=== PATIENT | female | born 1960 | race African-American/Black ===

== ENCOUNTER 2019-02-18 05:05 | Emergency (ER) | payer OTHER ==
[~2019-02-18] VITALS: Ht 162.6 cm; Wt 70.0 kg
[2019-02-18] MEDS ORDERED: IPRATROPIUM BROMIDE (0.02%) 0.5MG/2.5ML NEB HHN STA (05:37)
[2019-02-18] MEDS ORDERED: ALBUTEROL (0.083%) 2.5MG/3ML NEB HHN STA (05:37)
[2019-02-18 05:58] LABS: BASOPHILS % 0.9 % (0.0-2.0); EOSINOPHILS % 14.4 % (0.0-5.0); HEMATOCRIT. 43.1 % (36.0-48.0); HEMOGLOBIN. 14.2 g/dL (12.0-16.0); LYMPHOCYTES % 22.7 % (20.0-50.0); MEAN CORPUSCULAR HEMOGLOBIN 27.5 pg (28.0-32.0); MEAN CORPUSCULAR VOLUME 83.4 fL (81.0-99.0); MEAN PLATELET VOLUME 8.7 fl (7.4-10.4); MONOCYTES % 5.3 % (2.0-8.0); NEUTROPHILS % 56.7 % (40.0-76.0); PLATELET 296 x1000/uL (130-400); RED BLOOD CELL COUNT 5.17 mill/uL (4.2-5.4)
[2019-02-18 06:02] LABS: CHLORIDE 105 mEq/L (98-107)
[2019-02-18] MEDS ORDERED: CEFTRIAXONE 1 G PREMIX 50 ML IV ONE (07:00)
[2019-02-18] MEDS ORDERED: AZITHROMYCIN 500 MG in DEXT 5% WATER 250 ML IV SCH (07:00)
[2019-02-18] MEDS ORDERED: NITROGLYCERIN 0.4MG TABLET SL SL PRN (08:00)
[2019-02-18] MEDS ORDERED: HYDRALAZINE HCL 50MG TABLET PO ONE (10:15)
[2019-02-18 10:45] VITALS: BP 143/60
== END 2019-02-18 11:00 ==
LOC: ER 05:05 → CANBEDREQ 20:04
DX: J18.9 Pneumonia, unspecified organism (principal); J44.9 Chronic obstructive pulmonary disease, unspecified; F41.9 Anxiety disorder, unspecified; E78.00 Pure hypercholesterolemia, unspecified; I10 Essential (primary) hypertension; I25.10 Atherosclerotic heart disease of native coronary artery without angina pectoris; Z98.890 Other specified postprocedural states; F17.210 Nicotine dependence, cigarettes, uncomplicated
CPT/HCPCS: 36415; 71045; 80053; 82962; 83605; 83880; 84484; 85025; 87040; 93005; 94640; 96365; 96367; 99284; 99406; J0456; J0696; J7060; J7611; Z7610

== ENCOUNTER 2019-03-02 17:11 | Inpatient (IN) | payer OTHER ==
[~2019-03-02] VITALS: Ht 162.6 cm; Wt 69.9 kg
[2019-03-02] MEDS ORDERED: IPRATROPIUM BROMIDE (0.02%) 0.5MG/2.5ML NEB HHN STA (17:25)
[2019-03-02] MEDS ORDERED: METHYLPREDNISOLONE SOD SUCC 125 MG/2 ML VIAL IV STA (17:25)
[2019-03-02] MEDS ORDERED: ALBUTEROL (0.083%) 2.5MG/3ML NEB HHN STA (17:25)
[2019-03-02] MEDS ORDERED: MAGNESIUM 2 G PREMIX 50 ML IV STA (17:25)
[2019-03-02] MEDS ORDERED: LABETALOL 5MG/ML SYR 20 MG/4 ML SYRINGE IV ONE (17:30)
[2019-03-02 18:02] LABS: HEMATOCRIT. 38.9 % (36.0-48.0); HEMOGLOBIN. 12.6 g/dL (12.0-16.0); MEAN CORPUSCULAR VOLUME 83.1 fL (81.0-99.0); MEAN PLATELET VOLUME 8.1 fl (7.4-10.4); PLATELET 324 x1000/uL (130-400); RED BLOOD CELL COUNT 4.69 mill/uL (4.2-5.4); RED CELL DISTRIBUTION WIDTH 14.2 % (11.6-14.6)
[2019-03-02 18:07] LABS: CHLORIDE 108 mEq/L (98-107)
[2019-03-02 18:11] LABS: ETHANOL BLOOD < 10 mg/dL
[2019-03-02 18:21] LABS: INR 1.1; PROTHROMBIN TIME 11.4 sec (9.6-11.0)
[2019-03-02] MEDS ORDERED: ONDANSETRON HCL 4MG/2ML INJ IV STA (19:34)
[2019-03-02] MEDS ORDERED: MORPHINE SULFATE 4 MG/ML CPJ (NOT FOR IM USE) IV STA (19:34)
[2019-03-02] MEDS ORDERED: NITROGLYCERIN OINT 1GM/INCH UDPKT TD ONE (19:45)
[2019-03-02] MEDS ORDERED: ASPIRIN 81MG TABLET PO ONE (19:45)
[2019-03-02 20:49] LABS: PLATELET ESTIMATE NORMAL
[2019-03-02] MEDS ORDERED: FUROSEMIDE 20MG/2ML VIAL IVP ONE (21:00)
[2019-03-02 21:50] LABS: CLARITY URINE CLEAR (CLEAR); COLOR URINE YELLOW (YELLOW); KETONES URINE NEGATIVE (NEGATIVE); LEUKOCYTE ESTERASE URINE NEGATIVE (NEGATIVE); NITRITE URINE NEGATIVE (NEGATIVE); OCCULT BLOOD URINE NEGATIVE (NEGATIVE); PROTEIN URINE 1+ (NEGATIVE); SPECIFIC GRAVITY URINE 1.012 (1.005-1.030)
[2019-03-02 22:06] LABS: *AMPHETAMINES SCREEN URINE NEGATIVE (NEGATIVE); *BARBITURATES SCREEN URINE NEGATIVE (NEGATIVE)
[2019-03-02 22:07] LABS: *BENZODIAZEPINES SCREEN URINE NEGATIVE (NEGATIVE); *COCAINE SCREEN URINE NEGATIVE (NEGATIVE); METHADONE URINE SCREEN NEGATIVE (NEGATIVE); OPIATES URINE SCREEN PRESUMTIVE POSITIVE (NEGATIVE); PHENCYCLIDINE URINE SCREEN NEGATIVE (NEGATIVE)
[2019-03-02 22:08] LABS: CANNABINOID URINE SCREEN NEGATIVE (NEGATIVE)
[2019-03-02] MEDS ORDERED: FUROSEMIDE 20MG/2ML VIAL IV NR (23:15)
[2019-03-02] MEDS ORDERED: CLONIDINE 0.1MG TABLET PO PRN (23:15)
[2019-03-03] MEDS: ALBUTEROL (0.083%) 2.5MG/3ML NEB HHN SCH ×6 (00:09→20:39)
[2019-03-03] MEDS: IPRATROPIUM BROMIDE (0.02%) 0.5MG/2.5ML NEB HHN SCH ×6 (00:09→20:39)
[2019-03-03 04:30] VITALS: BP 166/73
[2019-03-03 05:45] VITALS: BP 166/73
[2019-03-03] MEDS ORDERED: INFLUENZA VIRUS VACCINE(AFLURIA) 0.5ML SYR IM ONE (06:00)
[2019-03-03] MEDS ORDERED: PNEUMOCOCCAL 23-VAL P-SAC VAC 0.5 ML IM ONE (06:00)
[2019-03-03] MEDS ORDERED: NITROGLYCERIN 0.4MG TABLET SL SL PRN (06:15)
[2019-03-03] MEDS ORDERED: DEXTROSE 50% WATER 50ML SYRINGE IV PRN (06:15)
[2019-03-03] MEDS ORDERED: ACETAMINOPHEN 325MG TABLET PO PRN (06:15)
[2019-03-03] MEDS ORDERED: TEMAZEPAM 15MG CAPSULE PO PRN (06:15)
[2019-03-03] MEDS ORDERED: ASPI-1393 PO (06:57)
[2019-03-03] MEDS ORDERED: CLOP75TA33 PO (06:57)
[2019-03-03] MEDS ORDERED: LORA1TAB MT (06:57)
[2019-03-03] MEDS ORDERED: GLIP5TAB12 MT (06:57)
[2019-03-03] MEDS ORDERED: METF-816 MT (06:57)
[2019-03-03] MEDS ORDERED: ATOR20TA65 MT (06:57)
[2019-03-03] MEDS: BLOOD SUGAR DIAGNOSTIC STRIP TEST SCH ×4 (07:10→21:30)
[2019-03-03 08:00] VITALS: BP 155/69
[2019-03-03] MEDS ORDERED: POTASSIUM CHLORIDE 20MEQ TABLET SR PO NR (08:00)
[2019-03-03] MEDS ORDERED: LOSARTAN POTASSIUM 50 MG TABLET PO NR (08:00)
[2019-03-03] MEDS: CLOPIDOGREL 75MG TABLET PO SCH (09:48)
[2019-03-03] MEDS: CARVEDILOL 3.125 MG TABLET PO SCH ×2 (09:48→21:30)
[2019-03-03] MEDS: FUROSEMIDE 40MG/4ML VIAL IVP SCH (09:48)
[2019-03-03] MEDS: PANTOPRAZOLE 40MG DR TABLET PO SCH (09:49)
[2019-03-03] MEDS: ASPIRIN 81MG TABLET PO SCH (09:49)
[2019-03-03] MEDS: ENOXAPARIN 40MG/0.4ML SYR SUBCUT SCH (09:49)
[2019-03-03] MEDS: INSULIN LISPRO 100 UNITS/ML SUBCUT SCH ×4 (09:51→21:50)
[2019-03-03 12:00] VITALS: BP 161/66
[2019-03-03] MEDS: CEFTRIAXONE 1 G PREMIX 50 ML IV SCH (13:34)
[2019-03-03] MEDS ORDERED: SODIUM BICARBONATE 4% (2.4MEQ) 5ML VIAL IV ONE (13:38)
[2019-03-03 16:00] VITALS: BP 130/63
[2019-03-03] MEDS: METHYLPREDNISOLONE SOD SUCC 40 MG/ML VIAL IV SCH (16:45)
[2019-03-03 17:00] LABS: BG CARBOXYHEMOGLOBIN 0.2 % (0.5-1.5); BG DEOXYHEMOGLOBIN 17.2 % (0.0-5.0); BG FRACTION INSPIRED OXYGEN 21; BG HCO3 ACT 26.1 mmol/L (22.0-26.0); BG METHEMOGLOBIN 0.1 % (0.0-1.5); BG OXYGEN SATURATION 82.7 % (92.0-98.5); BG OXYHEMOGLOBIN 82.5 % (94.0-97.0); BG PCO2 43.3 mmHg (35.0-45.0); BG PH 7.398 (7.350-7.450); BG PO2 48.6 mmHg (75.0-100.0); BG SAMPLE SITE RIGHT BRACHIAL; BG TOTAL HEMOGLOBIN 11.5 g/dL (12.0-18.0); BG VENT MODE ROOM AIR
[2019-03-03 18:04] LABS: BASOPHILS % 0.2 % (0.0-2.0); EOSINOPHILS % 0.5 % (0.0-5.0); HEMOGLOBIN. 10.9 g/dL (12.0-16.0); LYMPHOCYTES % 19.8 % (20.0-50.0); MEAN CORPUSCULAR HEMOGLOBIN 26.5 pg (28.0-32.0); MEAN CORPUSCULAR VOLUME 82.8 fL (81.0-99.0); MEAN PLATELET VOLUME 8.4 fl (7.4-10.4); MONOCYTES % 8.2 % (2.0-8.0); NEUTROPHILS % 71.3 % (40.0-76.0); PLATELET 327 x1000/uL (130-400); RED BLOOD CELL COUNT 4.11 mill/uL (4.2-5.4); RED CELL DISTRIBUTION WIDTH 14.2 % (11.6-14.6)
[2019-03-03 18:10] LABS: CHLORIDE 104 mEq/L (98-107)
[2019-03-03 18:18] LABS: CREATINE KINASE 449 IU/L (26-192)
[2019-03-03 18:20] LABS: CREATINE KINASE MB FRACTION 2.9 ng/mL (0.5-3.6)
[2019-03-03 20:00] VITALS: BP 151/62
[2019-03-03] MEDS: ATORVASTATIN CALCIUM 20MG TABLET PO SCH (21:30)
[2019-03-04] VITALS: BP 153/82
[2019-03-04] MEDS ORDERED: LACTULOSE 20G/30ML UDC PO NR
[2019-03-04] MEDS: METHYLPREDNISOLONE SOD SUCC 40 MG/ML VIAL IV SCH ×3 (00:09→17:07)
[2019-03-04] MEDS: ALBUTEROL (0.083%) 2.5MG/3ML NEB HHN SCH ×6 (00:18→20:04)
[2019-03-04] MEDS: IPRATROPIUM BROMIDE (0.02%) 0.5MG/2.5ML NEB HHN SCH ×6 (00:18→20:04)
[2019-03-04 04:00] VITALS: BP 164/81
[2019-03-04] MEDS: PANTOPRAZOLE 40MG DR TABLET PO SCH (06:16)
[2019-03-04] MEDS: BLOOD SUGAR DIAGNOSTIC STRIP TEST SCH ×4 (06:20→21:48)
[2019-03-04] MEDS: INSULIN LISPRO 100 UNITS/ML SUBCUT SCH ×4 (06:20→23:36)
[2019-03-04 08:00] VITALS: BP 164/82
[2019-03-04] MEDS: ASPIRIN 81MG TABLET PO SCH (09:35)
[2019-03-04] MEDS: CLOPIDOGREL 75MG TABLET PO SCH (09:36)
[2019-03-04] MEDS: ENOXAPARIN 40MG/0.4ML SYR SUBCUT SCH (09:36)
[2019-03-04] MEDS: POTASSIUM CHLORIDE 20MEQ TABLET SR PO SCH (09:37)
[2019-03-04] MEDS: FUROSEMIDE 40MG/4ML VIAL IVP SCH (09:37)
[2019-03-04] MEDS: CEFTRIAXONE 1 G PREMIX 50 ML IV SCH (09:38)
[2019-03-04] MEDS: LOSARTAN POTASSIUM 50 MG TABLET PO SCH (09:38)
[2019-03-04] MEDS: CARVEDILOL 3.125 MG TABLET PO SCH ×2 (09:39→21:48)
[2019-03-04 12:00] VITALS: BP 148/81
[2019-03-04 12:27] LABS: BASOPHILS % 0.1 % (0.0-2.0); HEMATOCRIT. 35.4 % (36.0-48.0); HEMOGLOBIN. 11.6 g/dL (12.0-16.0); LYMPHOCYTES % 11.4 % (20.0-50.0); MEAN CORPUSCULAR HEMOGLOBIN 27.2 pg (28.0-32.0); MEAN CORPUSCULAR VOLUME 83.3 fL (81.0-99.0); MEAN PLATELET VOLUME 8.4 fl (7.4-10.4); MONOCYTES % 4.1 % (2.0-8.0); NEUTROPHILS % 84.4 % (40.0-76.0); PLATELET 342 x1000/uL (130-400); RED BLOOD CELL COUNT 4.24 mill/uL (4.2-5.4); RED CELL DISTRIBUTION WIDTH 13.9 % (11.6-14.6)
[2019-03-04 12:34] LABS: CHLORIDE 103 mEq/L (98-107)
[2019-03-04 13:20] LABS: HEPATITIS B SURFACE ANTIGEN NEGATIVE
[2019-03-04 13:50] LABS: HEPATITIS A AB IGM NEGATIVE (NEGATIVE)
[2019-03-04 16:00] VITALS: BP 152/74
[2019-03-04] MEDS ORDERED: MONTELUKAST SODIUM 10MG TABLET PO SCH (17:00)
[2019-03-04] MEDS ORDERED: LEVOFLOXACIN 500MG PREMIX 100 ML IV SCH (17:00)
[2019-03-04 20:00] VITALS: BP 139/64
[2019-03-04] MEDS ORDERED: LACTULOSE 20G/30ML UDC PO PRN (21:00)
[2019-03-04] MEDS ORDERED: FAMOTIDINE 20MG TABLET PO SCH (21:00)
[2019-03-04] MEDS: ATORVASTATIN CALCIUM 20MG TABLET PO SCH (21:47)
[2019-03-05] VITALS: BP 144/77
[2019-03-05] MEDS: METHYLPREDNISOLONE SOD SUCC 40 MG/ML VIAL IV SCH ×2 (00:16→09:55)
[2019-03-05] MEDS: IPRATROPIUM BROMIDE (0.02%) 0.5MG/2.5ML NEB HHN SCH ×5 (01:08→15:29)
[2019-03-05] MEDS: ALBUTEROL (0.083%) 2.5MG/3ML NEB HHN SCH ×5 (01:08→15:29)
[2019-03-05 04:00] VITALS: BP 148/64
[2019-03-05] MEDS: INSULIN LISPRO 100 UNITS/ML SUBCUT SCH ×2 (06:09→12:40)
[2019-03-05] MEDS: BLOOD SUGAR DIAGNOSTIC STRIP TEST SCH ×2 (06:10→12:32)
[2019-03-05 06:53] LABS: HEMATOCRIT. 36.4 % (36.0-48.0); HEMOGLOBIN. 11.8 g/dL (12.0-16.0); LYMPHOCYTES % 9.4 % (20.0-50.0); MEAN CORPUSCULAR HEMOGLOBIN 27.3 pg (28.0-32.0); MEAN CORPUSCULAR VOLUME 83.9 fL (81.0-99.0); MEAN PLATELET VOLUME 8.8 fl (7.4-10.4); MONOCYTES % 3.2 % (2.0-8.0); NEUTROPHILS % 87.4 % (40.0-76.0); PLATELET 330 x1000/uL (130-400); RED BLOOD CELL COUNT 4.34 mill/uL (4.2-5.4)
[2019-03-05 07:09] LABS: CHLORIDE 100 mEq/L (98-107)
[2019-03-05 08:00] VITALS: BP 162/85
[2019-03-05] MEDS: POTASSIUM CHLORIDE 20MEQ TABLET SR PO SCH (09:54)
[2019-03-05] MEDS: CLOPIDOGREL 75MG TABLET PO SCH (09:54)
[2019-03-05] MEDS: ASPIRIN 81MG TABLET PO SCH (09:54)
[2019-03-05] MEDS: LOSARTAN POTASSIUM 50 MG TABLET PO SCH (09:55)
[2019-03-05] MEDS: CARVEDILOL 3.125 MG TABLET PO SCH (09:55)
[2019-03-05] MEDS: FUROSEMIDE 40MG/4ML VIAL IVP SCH (09:55)
[2019-03-05] MEDS: ENOXAPARIN 40MG/0.4ML SYR SUBCUT SCH (09:55)
[2019-03-05] MEDS ORDERED: INSULIN GLARGINE UD 100 UNITS/ML SYR SUBCUT SCH (11:00)
[2019-03-05] MEDS ORDERED: FURO-151 MT (11:53)
[2019-03-05] MEDS ORDERED: P20 PO (11:53)
[2019-03-05] MEDS ORDERED: LOSA50TA3 MT (11:53)
[2019-03-05] MEDS ORDERED: PRED10TA MT (11:53)
[2019-03-05] MEDS ORDERED: FLUT1AER INH (11:53)
[2019-03-05] MEDS ORDERED: COR3 MT (11:53)
[2019-03-05] MEDS ORDERED: LEVO500T2 MT (11:53)
[2019-03-05] MEDS ORDERED: P20 MT (11:53)
[2019-03-05] MEDS ORDERED: MONT10TA21 MT (11:53)
[2019-03-05] MEDS ORDERED: FAMO-135 MT (11:53)
[2019-03-05 12:00] VITALS: BP 164/86
[2019-03-05 15:21] VITALS: BP 160/78
[2019-03-05 16:00] VITALS: BP 160/78
[2019-03-05] MEDS ORDERED: METHYLPREDNISOLONE SOD SUCC 40 MG/ML VIAL IV SCH (21:00)
== END 2019-03-05 17:20 | disposition home or self-care (01) | DRG 139 ==
LOC: ER 17:11 → 8WST 20:03 → ENRESERV 03-03 03:26
PROVIDERS: ADMIT Internal Medicine; ATTEND Internal Medicine
DX: J18.9 Pneumonia, unspecified organism (principal); I50.43 Acute on chronic combined systolic (congestive) and diastolic (congestive) heart failure; J81.1 Chronic pulmonary edema; D72.1 Eosinophilia; J44.0 Chronic obstructive pulmonary disease with (acute) lower respiratory infection; I27.20 Pulmonary hypertension, unspecified; J44.1 Chronic obstructive pulmonary disease with (acute) exacerbation; J45.901 Unspecified asthma with (acute) exacerbation; R07.89 Other chest pain; I25.10 Atherosclerotic heart disease of native coronary artery without angina pectoris; I11.0 Hypertensive heart disease with heart failure; E11.9 Type 2 diabetes mellitus without complications; D64.9 Anemia, unspecified; E78.00 Pure hypercholesterolemia, unspecified; E78.5 Hyperlipidemia, unspecified; R59.9 Enlarged lymph nodes, unspecified; N63.0 Unspecified lump in unspecified breast; Z87.891 Personal history of nicotine dependence; Z79.899 Other long term (current) drug therapy; Z79.84 Long term (current) use of oral hypoglycemic drugs
CPT/HCPCS: 36415; 36600; 71045; 71250; 76700; 80048; 80076; 80305; 80320; 81003; 82375; 82550; 82553; 82805; 82962; 83036; 83605; 83880; 84145; 84484; 86300; 86705; 86709; 86803; 87340; 90686; 90732; 93005; 93306; 94640; 96365; 96375; 96376; 99291; J0696; J1650; J1815; J1940; J1956; J2270; J2405; J2920; J2930; J3475; J3490; J7040; J7611; G0480

== ENCOUNTER 2019-04-28 22:13 | Inpatient (IN) | payer OTHER ==
[~2019-04-28] VITALS: Ht 162.6 cm; Wt 68.9 kg
[~2019-04-28 22:13] MED LIST: ASPI-1497 PO; ATOR20TA65 MT; CLOP75TA33 PO; COR3 MT; FAMO-135 MT; FLUT1AER INH; FURO-151 MT; GLIP5TAB12 MT; LEVO500T2 MT; LORA1TAB MT; LOSA50TA3 MT; METF-816 MT; MONT10TA21 MT; P20 MT; P20 PO; PRED10TA MT
[2019-04-28] MEDS ORDERED: METHYLPREDNISOLONE SOD SUCC 125 MG/2 ML VIAL IV STA (22:51)
[2019-04-28] MEDS ORDERED: IPRATROPIUM BROMIDE (0.02%) 0.5MG/2.5ML NEB HHN STA (22:51)
[2019-04-28] MEDS ORDERED: HYDROCODONE/ACETAMINOPHEN 5/325MG TABLET PO STA (22:51)
[2019-04-28] MEDS: ALBUTEROL (0.083%) 2.5MG/3ML NEB HHN SCH ×2 (23:23→23:54)
[2019-04-28 23:26] LABS: BASOPHILS % 0.8 % (0.0-2.0); EOSINOPHILS % 9.1 % (0.0-5.0); HEMATOCRIT. 37.7 % (36.0-48.0); HEMOGLOBIN. 12.2 g/dL (12.0-16.0); LYMPHOCYTES % 24.2 % (20.0-50.0); MEAN CORPUSCULAR HEMOGLOBIN 26.3 pg (28.0-32.0); MEAN CORPUSCULAR VOLUME 81.5 fL (81.0-99.0); MEAN PLATELET VOLUME 8.2 fl (7.4-10.4); MONOCYTES % 6.4 % (2.0-8.0); NEUTROPHILS % 59.5 % (40.0-76.0); PLATELET 270 x1000/uL (130-400); RED BLOOD CELL COUNT 4.63 mill/uL (4.2-5.4); RED CELL DISTRIBUTION WIDTH 15.3 % (11.6-14.6)
[2019-04-28 23:30] LABS: CHLORIDE 104 mEq/L (98-107)
[2019-04-28 23:31] LABS: BG BASE EXCESS -1.7 mmol/L (-2.0-2.0); BG CARBOXYHEMOGLOBIN 0.6 % (0.5-1.5); BG DEOXYHEMOGLOBIN 4.8 % (0.0-5.0); BG FRACTION INSPIRED OXYGEN 21; BG HCO3 ACT 21.5 mmol/L (22.0-26.0); BG METHEMOGLOBIN 0.3 % (0.0-1.5); BG OXYGEN SATURATION 95.2 % (92.0-98.5); BG OXYHEMOGLOBIN 94.3 % (94.0-97.0); BG PH 7.446 (7.350-7.450); BG PO2 75.7 mmHg (75.0-100.0); BG SAMPLE SITE RIGHT BRACHIAL; BG TOTAL HEMOGLOBIN 12.3 g/dL (12.0-18.0); BG VENT MODE ROOM AIR
[2019-04-29] MEDS ORDERED: LEVOFLOXACIN 750MG PREMIX 150 ML IV ONE (00:15)
[2019-04-29] MEDS ORDERED: LOSARTAN POTASSIUM 50 MG TABLET PO ONE (01:00)
[2019-04-29] MEDS ORDERED: FUROSEMIDE 40MG/4ML VIAL IVP ONE (01:00)
[2019-04-29] MEDS: ALBUTEROL (0.083%) 2.5MG/3ML NEB HHN SCH (01:50)
[2019-04-29] MEDS ORDERED: INSULIN LISPRO (LOW DOSE) 100 UNITS/ML SUBCUT SCH (06:00)
[2019-04-29] MEDS: CLONIDINE 0.1MG TABLET PO PRN ×2 (06:03→17:54)
[2019-04-29 11:34] VITALS: BP 155/78
[2019-04-29 16:00] VITALS: BP 168/79
[2019-04-29] MEDS ORDERED: HYDROCODONE/ACETAMINOPHEN 5/325MG TABLET PO PRN (17:00)
[2019-04-29] MEDS ORDERED: DEXTROSE 50% WATER 50ML SYRINGE IV PRN (17:00)
[2019-04-29] MEDS: FUROSEMIDE 40MG/4ML VIAL IVP SCH (17:52)
[2019-04-29] MEDS: PANTOPRAZOLE 40MG DR TABLET PO SCH (17:54)
[2019-04-29] MEDS: METHYLPREDNISOLONE SOD SUCC 40 MG/ML VIAL IV SCH (17:56)
[2019-04-29] MEDS: BLOOD SUGAR DIAGNOSTIC STRIP TEST SCH ×2 (18:14→20:15)
[2019-04-29] MEDS: INSULIN LISPRO 100 UNITS/ML SUBCUT SCH ×2 (18:15→21:04)
[2019-04-29] MEDS ORDERED: METO100T16 MT (18:23)
[2019-04-29] MEDS: IPRATROPIUM/ALBUTEROL 0.5-3(2.5)MG/3ML NEB HHN SCH ×2 (18:42→20:24)
[2019-04-29] MEDS ORDERED: IPRATROPIUM BROMIDE (0.02%) 0.5MG/2.5ML NEB HHN PRN (19:30)
[2019-04-29] MEDS ORDERED: IPRATROPIUM/ALBUTEROL 0.5-3(2.5)MG/3ML NEB HHN PRN (19:30)
[2019-04-29 20:00] VITALS: BP 154/71
[2019-04-29] MEDS: ENOXAPARIN 40MG/0.4ML SYR SUBCUT SCH (20:15)
[2019-04-29 23:55] LABS: CREATINE KINASE MB FRACTION 2.2 ng/mL (0.5-3.6)
[2019-04-30] VITALS: BP 145/66
[2019-04-30] MEDS: IPRATROPIUM/ALBUTEROL 0.5-3(2.5)MG/3ML NEB HHN SCH ×6 (00:19→21:17)
[2019-04-30 04:00] VITALS: BP 166/75
[2019-04-30] MEDS: PANTOPRAZOLE 40MG DR TABLET PO SCH (05:46)
[2019-04-30] MEDS: BLOOD SUGAR DIAGNOSTIC STRIP TEST SCH ×4 (05:46→20:37)
[2019-04-30] MEDS: METHYLPREDNISOLONE SOD SUCC 40 MG/ML VIAL IV SCH ×2 (05:46→17:29)
[2019-04-30] MEDS: INSULIN LISPRO 100 UNITS/ML SUBCUT SCH ×4 (06:29→20:45)
[2019-04-30 06:35] LABS: CREATINE KINASE MB FRACTION 2.2 ng/mL (0.5-3.6)
[2019-04-30 08:00] VITALS: BP 158/80
[2019-04-30] MEDS: ASPIRIN 81MG TABLET PO SCH (08:36)
[2019-04-30] MEDS: FUROSEMIDE 40MG/4ML VIAL IVP SCH (08:36)
[2019-04-30 12:00] VITALS: BP 118/82
[2019-04-30 16:00] VITALS: BP 160/75
[2019-04-30 17:15] LABS: CREATINE KINASE MB FRACTION 2.9 ng/mL (0.5-3.6)
[2019-04-30] MEDS: ENOXAPARIN 40MG/0.4ML SYR SUBCUT SCH (17:29)
[2019-04-30 20:00] VITALS: BP 158/72
[2019-05-01] VITALS: BP 156/83
[2019-05-01 00:47] LABS: CREATINE KINASE MB FRACTION 2.8 ng/mL (0.5-3.6)
[2019-05-01] MEDS: IPRATROPIUM/ALBUTEROL 0.5-3(2.5)MG/3ML NEB HHN SCH ×5 (01:40→21:05)
[2019-05-01 04:00] VITALS: BP 158/72
[2019-05-01] MEDS: METHYLPREDNISOLONE SOD SUCC 40 MG/ML VIAL IV SCH ×2 (05:51→17:51)
[2019-05-01] MEDS: BLOOD SUGAR DIAGNOSTIC STRIP TEST SCH ×4 (05:51→21:21)
[2019-05-01] MEDS: INSULIN LISPRO 100 UNITS/ML SUBCUT SCH ×4 (06:17→21:22)
[2019-05-01 08:00] VITALS: BP 160/79
[2019-05-01] MEDS: BUDESONIDE 0.5MG/2ML NEB HHN SCH (09:00)
[2019-05-01 09:15] LABS: CREATINE KINASE MB FRACTION 2.6 ng/mL (0.5-3.6)
[2019-05-01] MEDS: FUROSEMIDE 40MG/4ML VIAL IVP SCH (09:50)
[2019-05-01] MEDS: ASPIRIN 81MG TABLET PO SCH (09:50)
[2019-05-01] MEDS ORDERED: BUDESONIDE 0.5MG/2ML NEB HHN SCH (12:15)
[2019-05-01] MEDS ORDERED: INSULIN LISPRO 100 UNITS/ML SUBCUT NR (12:34)
[2019-05-01 15:55] LABS: INR 1.1; PROTHROMBIN TIME 11.4 sec (9.6-11.0)
[2019-05-01 15:56] LABS: HEMOGLOBIN. 11.5 g/dL (12.0-16.0); MEAN CORPUSCULAR VOLUME 81.1 fL (81.0-99.0); MEAN PLATELET VOLUME 8.4 fl (7.4-10.4); PLATELET 313 x1000/uL (130-400); RED BLOOD CELL COUNT 4.44 mill/uL (4.2-5.4); RED CELL DISTRIBUTION WIDTH 15.3 % (11.6-14.6)
[2019-05-01 16:00] VITALS: BP 122/70
[2019-05-01 16:06] LABS: CHLORIDE 97 mEq/L (98-107)
[2019-05-01 16:14] LABS: CREATINE KINASE 229 IU/L (26-192)
[2019-05-01 16:17] LABS: CREATINE KINASE MB FRACTION 2.1 ng/mL (0.5-3.6)
[2019-05-01 16:40] LABS: PLATELET ESTIMATE NORMAL
[2019-05-01] MEDS ORDERED: INSULIN LISPRO 100 UNITS/ML SUBCUT SCH (17:15)
[2019-05-01] MEDS ORDERED: DIPHENHYDRAMINE 50MG/ML VIAL IV PRN (17:30)
[2019-05-01] MEDS ORDERED: LACTULOSE 20G/30ML UDC PO PRN (17:30)
[2019-05-01] MEDS ORDERED: HYDROCODONE/ACETAMINOPHEN 5/325MG TABLET PO PRN (17:30)
[2019-05-01] MEDS ORDERED: LORAZEPAM 2MG/ML CPJ IV PRN (17:30)
[2019-05-01] MEDS: ENOXAPARIN 40MG/0.4ML SYR SUBCUT SCH (17:52)
[2019-05-01] MEDS: AMLODIPINE 5MG TABLET PO SCH (17:52)
[2019-05-01 20:00] VITALS: BP 135/78
[2019-05-01] MEDS: INSULIN GLARGINE UD 100 UNITS/ML SYR SUBCUT SCH (21:22)
[2019-05-01] MEDS: CLONIDINE 0.1MG TABLET PO PRN (23:59)
[2019-05-02] VITALS: BP 165/74
[2019-05-02] MEDS: IPRATROPIUM/ALBUTEROL 0.5-3(2.5)MG/3ML NEB HHN SCH ×6 (00:20→20:09)
[2019-05-02 04:00] VITALS: BP 158/81
[2019-05-02] MEDS: METHYLPREDNISOLONE SOD SUCC 40 MG/ML VIAL IV SCH (06:24)
[2019-05-02] MEDS: BLOOD SUGAR DIAGNOSTIC STRIP TEST SCH ×4 (06:25→21:24)
[2019-05-02] MEDS: INSULIN LISPRO 100 UNITS/ML SUBCUT SCH ×4 (06:26→21:24)
[2019-05-02 09:22] LABS: HEMATOCRIT 35.8 % (36.0-48.0); HEMOGLOBIN 11.5 g/dL (12.0-16.0); MEAN CORPUSCULAR HEMOGLOBIN 25.9 pg (28.0-32.0); MEAN CORPUSCULAR VOLUME 80.8 fL (81.0-99.0); PLATELET 292 x1000/uL (130-400); RED BLOOD CELL COUNT 4.43 mill/uL (4.2-5.4); RED CELL DISTRIBUTION WIDTH 14.8 % (11.6-14.6)
[2019-05-02 09:33] LABS: CHLORIDE 97 mEq/L (98-107)
[2019-05-02 09:43] LABS: CREATINE KINASE 197 IU/L (26-192)
[2019-05-02 09:44] LABS: CREATINE KINASE MB FRACTION 2.7 ng/mL (0.5-3.6)
[2019-05-02] MEDS: ASPIRIN 81MG TABLET PO SCH (09:45)
[2019-05-02] MEDS: AMLODIPINE 5MG TABLET PO SCH (09:45)
[2019-05-02] MEDS: INSULIN GLARGINE UD 100 UNITS/ML SYR SUBCUT SCH ×2 (09:47→21:24)
[2019-05-02] MEDS ORDERED: INSULIN LISPRO 100 UNITS/ML SUBCUT NR (12:15)
[2019-05-02] MEDS ORDERED: INSULIN GLARGINE UD 100 UNITS/ML SYR SUBCUT NR (13:30)
[2019-05-02] MEDS ORDERED: GLYBURIDE 5MG TABLET PO STA (16:37)
[2019-05-02] MEDS ORDERED: P20 PO (16:47)
[2019-05-02] MEDS ORDERED: IPRA3AMP9 NEB (16:47)
[2019-05-02] MEDS ORDERED: METF-414 MT (16:47)
[2019-05-02] MEDS ORDERED: GLIP5TAB12 MT (16:47)
[2019-05-02] MEDS ORDERED: GLIPIZIDE 5MG TABLET PO NR (16:51)
[2019-05-02] MEDS: ENOXAPARIN 40MG/0.4ML SYR SUBCUT SCH (17:14)
[2019-05-02] MEDS: METFORMIN HCL 500MG TABLET PO SCH (19:15)
[2019-05-02 19:19] LABS: CLARITY URINE CLEAR (CLEAR); COLOR URINE YELLOW (YELLOW); KETONES URINE NEGATIVE (NEGATIVE); LEUKOCYTE ESTERASE URINE NEGATIVE (NEGATIVE); NITRITE URINE NEGATIVE (NEGATIVE); OCCULT BLOOD URINE NEGATIVE (NEGATIVE); PROTEIN URINE NEGATIVE (NEGATIVE); SPECIFIC GRAVITY URINE 1.014 (1.005-1.030); UROBILINOGEN URINE 0.2 E.U./dL (0.2-1.0)
[2019-05-02 19:32] LABS: OPIATES URINE SCREEN NEGATIVE (NEGATIVE); PHENCYCLIDINE URINE SCREEN NEGATIVE (NEGATIVE)
[2019-05-02 19:33] LABS: CANNABINOID URINE SCREEN NEGATIVE (NEGATIVE)
[2019-05-02 19:34] LABS: *AMPHETAMINES SCREEN URINE NEGATIVE (NEGATIVE); *BARBITURATES SCREEN URINE NEGATIVE (NEGATIVE); *BENZODIAZEPINES SCREEN URINE NEGATIVE (NEGATIVE); *COCAINE SCREEN URINE NEGATIVE (NEGATIVE); METHADONE URINE SCREEN NEGATIVE (NEGATIVE)
[2019-05-02 20:00] VITALS: BP 149/62
[2019-05-02] MEDS: BUDESONIDE 0.5MG/2ML NEB HHN SCH (20:08)
[2019-05-03] VITALS: BP 151/72
[2019-05-03 04:00] VITALS: BP 158/84
[2019-05-03] MEDS: IPRATROPIUM/ALBUTEROL 0.5-3(2.5)MG/3ML NEB HHN SCH ×3 (04:19→08:41)
[2019-05-03] MEDS: INSULIN LISPRO 100 UNITS/ML SUBCUT SCH ×2 (06:16→12:55)
[2019-05-03] MEDS: BLOOD SUGAR DIAGNOSTIC STRIP TEST SCH ×3 (06:16→16:41)
[2019-05-03 08:00] VITALS: BP 169/89
[2019-05-03] MEDS: BUDESONIDE 0.5MG/2ML NEB HHN SCH (08:41)
[2019-05-03] MEDS ORDERED: METHYLPREDNISOLONE SOD SUCC 40 MG/ML VIAL IV SCH ×2 (09:00→12:00)
[2019-05-03 09:15] LABS: HEMATOCRIT 38.2 % (36.0-48.0); HEMOGLOBIN 12.2 g/dL (12.0-16.0); MEAN CORPUSCULAR HEMOGLOBIN 25.8 pg (28.0-32.0); MEAN CORPUSCULAR VOLUME 80.7 fL (81.0-99.0); PLATELET 305 x1000/uL (130-400); RED BLOOD CELL COUNT 4.73 mill/uL (4.2-5.4)
[2019-05-03 09:26] LABS: CHLORIDE 104 mEq/L (98-107)
[2019-05-03] MEDS: METFORMIN HCL 500MG TABLET PO SCH ×2 (09:28→18:02)
[2019-05-03] MEDS: AMLODIPINE 5MG TABLET PO SCH (09:28)
[2019-05-03] MEDS: ASPIRIN 81MG TABLET PO SCH (09:28)
[2019-05-03] MEDS: INSULIN GLARGINE UD 100 UNITS/ML SYR SUBCUT SCH (11:05)
[2019-05-03 16:37] VITALS: BP 170/93
[2019-05-03] MEDS ORDERED: AMLODIPINE 5MG TABLET PO NR (17:30)
[2019-05-03] MEDS ORDERED: INSULIN LISPRO 100 UNITS/ML SUBCUT NR (17:30)
[2019-05-03] MEDS: ENOXAPARIN 40MG/0.4ML SYR SUBCUT SCH (18:00)
== END 2019-05-03 18:30 | disposition left against medical advice (07) | DRG 133 ==
LOC: ER 22:13 → 5WST 04-29 01:33 → EDBEDREQDT 04-29 01:39 → EDBEDREQTM 04-29 01:39 → EDBEDREQ 04-29 01:39 → ENRESERV 04-29 07:45
PROVIDERS: ADMIT Internal Medicine; ATTEND Internal Medicine
DX: J96.01 Acute respiratory failure with hypoxia (principal); I50.43 Acute on chronic combined systolic (congestive) and diastolic (congestive) heart failure; I27.20 Pulmonary hypertension, unspecified; D72.1 Eosinophilia; J44.1 Chronic obstructive pulmonary disease with (acute) exacerbation; E11.65 Type 2 diabetes mellitus with hyperglycemia; J84.10 Pulmonary fibrosis, unspecified; I11.0 Hypertensive heart disease with heart failure; Z99.81 Dependence on supplemental oxygen; E78.00 Pure hypercholesterolemia, unspecified; T38.0X5A Adverse effect of glucocorticoids and synthetic analogues, initial encounter; R59.0 Localized enlarged lymph nodes; Z53.29 Procedure and treatment not carried out because of patient's decision for other reasons; D64.9 Anemia, unspecified; Z79.4 Long term (current) use of insulin; Z87.891 Personal history of nicotine dependence; Z79.899 Other long term (current) drug therapy; Z79.82 Long term (current) use of aspirin; Z79.84 Long term (current) use of oral hypoglycemic drugs; Y92.89 Other specified places as the place of occurrence of the external cause
CPT/HCPCS: 36415; 36600; 71045; 71250; 80048; 80053; 80061; 80305; 81003; 82375; 82550; 82553; 82805; 82962; 83036; 83605; 83880; 84484; 85025; 85027; 87804; 93005; 94640; 96365; 96366; 96372; 96375; 99291; J1650; J1815; J1940; J1956; J2920; J2930; J7611; J7620; J7626